=== PATIENT | male | born 1985 | race Caucasian/White ===

== ENCOUNTER → 2016-10-10 | Outpatient (CLI) | payer BC ==
--- NOTE | 2016-10-10 14:23 | CT ---
EXAMINATION: CT chest without contrast HISTORY: Pneumonia COMPARISON: Chest radiograph dated 09/30/2014 TECHNIQUE: Axial CT images obtained through the chest without contrast. Coronal and sagittal reconst ructions obtained. FINDINGS: The lungs are clear without focal consolidation. No pleural effusion or pneumothorax. The heart is normal in size without a pericardial effusion. On pathologically enlarged mediastinal lymph nodes are noted. No hilar fullness or axillary lymphadenopathy. Thoracic aorta is normal in caliber . Central airways are grossly clear. The visualized images of the upper abdomen appear normal. No suspicious osseous is identified. IMPRESSION: 1. Grossly unremarkable CT chest.
== END ==
LOC: MW.CT 10:55
PROVIDERS: ATTEND General Practice
DX: J18.9 Pneumonia, unspecified organism (principal)
CPT/HCPCS: 71250; 71250-26

== ENCOUNTER 2017-09-21 18:14 | Emergency (ER) | payer BC ==
[2017-09-21] MEDS ORDERED: Sodium Chloride 0.9% 2.5 ML Syringe FLUSH PRN (18:25)
[2017-09-21] MEDS ORDERED: Sodium Chloride 0.9% 10 ML Syringe FLUSH PRN (18:25)
[2017-09-21] MEDS ORDERED: Morphine 2 MG/ML Syringe IVPUSH ONE (18:26)
[2017-09-21] MEDS ORDERED: Aspirin 81 MG Tab.Chew PO ONE (18:26)
[2017-09-21] MEDS ORDERED: Ketorolac 30 MG/ML SDV IVPUSH ONE (18:26)
--- NOTE | 2017-09-21 18:31 | EDM.PDOC ---
<Betahny Sutton - Last Filed: 09/21/17 18:39> ED HPI GENERAL MEDICAL PROBLEM - General Chief Complaint: Chest Pain Stated Complaint: CHEST PAIN Time Seen by Provider: 09/21/17 18:18 - History of Present Illness INITIAL COMMENTS - FREE TEXT/NARRATIVE: HISTORY AND PHYSICAL: History of present illness: Patient is a 32-year-old male with no significant cardiac or pulmonary disease who presents with complaints of a cough for several days and now having chest pain anteriorly just to the left of the sternum which is sharp in nature. The patient says that there is more pain with deep breaths and movement as well as coughing. He's had no fever except a temp of 99 this morning and the cough is occasionally productive of phlegm. He did not get his influenza shot this year. He has been eating and drinking normally and has no abdominal complaints area is no leg pain or swelling. The patient has no significant social history and has no significant family history as his mother is the only one with cardiac disease and had an NE at 64 years of age. 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 The patient doesn't feel short of breath and occasionally he says that the pain does radiate to his back. Patient eats at home and does not eat fast food or junk food and has had no GI history. He has no flank pain and no recent trauma. Patient says that this discomfort and stabbing pain started about 8:30 this morning and has been constant all day but waxing and waning in intensity. He has not taken any medications for it prior to coming here Review of systems: As per history of present illness and below otherwise all systems reviewed and negative. Past medical history: As per history of present illness and as reviewed below otherwise noncontributory. Surgical history: As per history of present illness and as reviewed below otherwise noncontributory. Social history: No reported history of drug or alcohol abuse. Family history: As per history of present illness and as reviewed below otherwise noncontributory. Physical exam: General: Well-developed overweight male who is nontoxic and vital signs are reviewed by me. Patient seems a little anxious in the room but is answering questions and cooperative. HEENT: Atraumatic, normocephalic, pupils reactive, negative for conjunctival pallor or scleral icterus, mucous membranes moist, throat clear, neck supple, nontender, trachea midline. Lungs: Clear to auscultation, breath sounds equal bilaterally, chest wall with reproducible tenderness to the left of the sternal margin in the lower aspect without any crepitus defects or deformities. When I have the patient on himself or take a deep breath he complains of discomfort. There is no worker breathing or sensory muscle use stridor or wheezing Heart: S1S2, regular rhythm slightly tachycardic rate on my evaluation, negative for clicks, rubs, or JVD. Abdomen: Soft, nondistended, nontender. Negative for masses or hepatosplenomegaly. NABS Pelvis: Stable nontender. Genitourinary: Deferred. Rectal: Deferred. Extremities: Atraumatic, negative for cords or calf pain. Neurovascular unremarkable. No pedal edema or leg asymmetry Neuro: Awake, alert, oriented. Cranial nerves II through XII unremarkable. Cerebellum unremarkable. Motor and sensory unremarkable throughout. Exam nonfocal. Diagnostics: EKG CBC CMP d-dimer INR troponin influenza chest x-ray Therapeutics: IV O2 monitor aspirin Toradol morphine 1900: Case is endorsed to Dr. Voss will follow all testing results and disposition patient pending those results Impression: Chest pain/pleuritic chest pain with cough Definitive disposition and diagnosis as appropriate pending reevaluation and review of above. - Related Data Allergies Allergy/AdvReac Type Severity Reaction Status Date / Time No Known Allergies Allergy Verified 08/26/16 09:54 Home Meds: Home Meds Acyclovir 1 tab PO DAILY 01/14/16 [History] Past Medical History - Past Health History Medical/Surgical History: Denies Medical/Surgical History Respiratory History: Reports: Asthma Musculoskeletal History: Reports: None Neurological History: Reports: Head Trauma Psychiatric History: Reports: None Endocrine/Metabolic History: Reports: None Hematologic History: Reports: None Immunologic History: Reports: None Oncologic (Cancer) History: Reports: None Dermatologic History: Reports: None - Infectious Disease History Infectious Disease History: Reports: C-Difficile, Influenza Social & Family History - Family History Family Medical History: Noncontributory - Tobacco Use Smoking Status *Q: Former Smoker Years of Tobacco use: 2 Second Hand Smoke Exposure: No - Caffeine Use Caffeine Use: Reports: Coffee, Energy Drinks, Soda Caffeine Use Comment: 3/day - Recreational Drug Use Recreational Drug Use: No ED ROS GENERAL - Review of Systems Review Of Systems: ROS reveals no pertinent complaints other than HPI. ED EXAM, GENERAL - Physical Exam Exam: See Below (see Dictation) Course - Vital Signs Last Recorded V/S: Last Vital Signs Temp 97.8 F 09/21/17 18:15 Pulse 96 09/21/17 19:19 Resp 17 09/21/17 19:19 BP 129/84 09/21/17 19:19 Pulse Ox 97 09/21/17 19:19 - Orders/Labs/Meds Orders: Active Orders 24 hr Category Date Time Status Cardiac Monitoring [RC] . DIRECTED Care 09/21/17 18:25 Active EKG Documentation Completion [RC] STAT Care 09/21/17 18:25 Active Oxygen Therapy, ED [RC] ASDIRECTED Care 09/21/17 18:25 Active Pulse Oximetry [RC] ASDIRECTED Care 09/21/17 18:25 Active Chest 1V Frontal [CR] Stat Exams 09/21/17 18:26 Taken Sodium Chloride 0.9% [Saline Flush] Med 09/21/17 18:25 Active 10 ml FLUSH ASDIRECTED PRN Sodium Chloride 0.9% [Saline Flush] Med 09/21/17 18:25 Active 2.5 ml FLUSH ASDIRECTED PRN Saline Lock Insert [OM.PC] Stat Oth 09/21/17 18:25 Ordered Medication Orders Sodium Chloride (Saline Flush) 10 ml FLUSH ASDIRECTED PRN PRN Reason: Keep Vein Open Sodium Chloride (Saline Flush) 2.5 ml FLUSH ASDIRECTED PRN PRN Reason: Keep Vein Open Labs: Laboratory Tests 09/21/17 09/21/17 09/21/17 Range/Units 18:50 18:50 18:50 WBC 5.07 (4.0-11.0) K/uL RBC 4.93 (4.50-5.90) M/uL Hgb 14.8 (13.0-17.0) g/dL Hct 43.4 (38.0-50.0) % MCV 88.0 (80.0-98.0) fL MCH 30.0 (27.0-32.0) pg MCHC 34.1 (31.0-37.0) g/dL RDW Std Deviation 41.3 (28.0-62.0) fl RDW Coeff of Yovanny 13 (11.0-15.0) % Plt Count 188 (150-400) K/uL MPV 10.80 (7.40-12.00) fL Neut % (Auto) 58.5 (48.0-80.0) % Lymph % (Auto) 24.1 (16.0-40.0) % [place] % (Auto) 14.6 (0.0-15.0) % Eos % (Auto) 2.2 (0.0-7.0) % Baso % (Auto) 0.6 (0.0-1.5) % Neut # (Auto) 3.0 (1.4-5.7) K/uL Lymph # (Auto) 1.2 (0.6-2.4) K/uL [place] # (Auto) 0.7 (0.0-0.8) K/uL Eos # (Auto) 0.1 (0.0-0.7) K/uL Baso # (Auto) 0.0 (0.0-0.1) K/uL Nucleated RBC % 0.0 /100WBC Nucleated RBCs # 0 K/uL INR 0.98 D-Dimer, Quantitative (0.0-0.52) mg/LFEU Sodium 138 (136-148) mmol/L Potassium 4.0 (3.5-5.1) mmol/L Chloride 106 (98-107) mmol/L Carbon Dioxide 23.0 (21.0-32.0) mmol/L BUN 20 H (7.0-18.0) mg/dL Creatinine 1.1 (0.8-1.3) mg/dL Est Cr Clr Drug Dosing 104.84 mL/min Estimated GFR (MDRD) > 60.0 ml/min Glucose 100 (74-106) mg/dL Calcium 8.6 (8.5-10.1) mg/dL Total Bilirubin 0.3 (0.2-1.0) mg/dL AST 29 (15-37) U/L ALT 64 H (14-63) U/L Alkaline Phosphatase 79 (46-116) U/L Troponin I < 0.050 (0.000-0.056) ng/mL Total Protein 7.0 (6.4-8.2) g/dL Albumin 3.7 (3.4-5.0) g/dL Globulin 3.3 (2.0-3.5) g/dL Albumin/Globulin Ratio 1.1 L (1.3-2.8) 09/21/17 Range/Units 18:50 WBC (4.0-11.0) K/uL RBC (4.50-5.90) M/uL Hgb (13.0-17.0) g/dL Hct (38.0-50.0) % MCV (80.0-98.0) fL MCH (27.0-32.0) pg MCHC (31.0-37.0) g/dL RDW Std Deviation (28.0-62.0) fl RDW Coeff of Yovanny (11.0-15.0) % Plt Count (150-400) K/uL MPV (7.40-12.00) fL Neut % (Auto) (48.0-80.0) % Lymph % (Auto) (16.0-40.0) % [place] % (Auto) (0.0-15.0) % Eos % (Auto) (0.0-7.0) % Baso % (Auto) (0.0-1.5) % Neut # (Auto) (1.4-5.7) K/uL Lymph # (Auto) (0.6-2.4) K/uL [place] # (Auto) (0.0-0.8) K/uL Eos # (Auto) (0.0-0.7) K/uL Baso # (Auto) (0.0-0.1) K/uL Nucleated RBC % /100WBC Nucleated RBCs # K/uL INR D-Dimer, Quantitative 0.20 (0.0-0.52) mg/LFEU Sodium (136-148) mmol/L Potassium (3.5-5.1) mmol/L Chloride (98-107) mmol/L Carbon Dioxide (21.0-32.0) mmol/L BUN (7.0-18.0) mg/dL Creatinine (0.8-1.3) mg/dL Est Cr Clr Drug Dosing mL/min Estimated GFR (MDRD) ml/min Glucose (74-106) mg/dL Calcium (8.5-10.1) mg/dL Total Bilirubin (0.2-1.0) mg/dL AST (15-37) U/L ALT (14-63) U/L Alkaline Phosphatase (46-116) U/L Troponin I (0.000-0.056) ng/mL Total Protein (6.4-8.2) g/dL Albumin (3.4-5.0) g/dL Globulin (2.0-3.5) g/dL Albumin/Globulin Ratio (1.3-2.8) Meds: Medications Generic Name Dose Route Start Last Admin Trade Name Freq PRN Reason Stop Dose Admin Sodium Chloride 10 ml 09/21/17 18:25 Saline Flush FLUSH ASDIRECTED PRN Keep Vein Open Sodium Chloride 2.5 ml 09/21/17 18:25 Saline Flush FLUSH ASDIRECTED PRN Keep Vein Open Discontinued Medications Generic Name Dose Route Start Last Admin Trade Name Freq PRN Reason Stop Dose Admin Aspirin 324 mg 09/21/17 18:26 09/21/17 19:13 Aspirin PO 09/21/17 18:27 324 mg ONETIME ONE Administration Ketorolac Tromethamine 30 mg 09/21/17 18:26 09/21/17 19:14 Toradol IVPUSH 09/21/17 18:27 30 mg ONETIME ONE Administration Morphine Sulfate 4 mg 09/21/17 18:26 Morphine IVPUSH 09/21/17 18:27 ONETIME ONE Departure - Departure Disposition: Home, Self-Care 01 Clinical Impression: Acute bronchitis, Costochondritis - Discharge Information Referrals: PCP,None [Primary Care Provider] - Forms: ED Department Discharge Additional Instructions: Medication as prescribed Return if symptoms persist or worsen Follow-up with primary care in 2 weeks sooner as needed [facility] - [facility] [address] [place] [address] The following information is given to patients seen in the emergency department who are being discharged to home. This information is to outline your options for follow-up care. We provide all patients seen in our emergency department with a follow-up referral. The need for follow-up, as well as the timing and circumstances, are variable depending upon the specifics of your emergency department visit. If you don't have a primary care physician on staff, we will provide you with a referral. We always advise you to contact your personal physician following an emergency department visit to inform them of the circumstance of the visit and for follow-up with them and/or the need for any referrals to a consulting specialist. The emergency department will also refer you to a specialist when appropriate. This referral assures that you have the opportunity for follow-up care with a specialist. All of these measure are taken in an effort to provide you with optimal care, which includes your follow-up. Under all circumstances we always encourage you to contact your private physician who remains a resource for coordinating your care. When calling for follow-up care, please make the office aware that this follow-up is from your recent emergency room visit. If for any reason you are refused follow-up, please contact the [facility] emergency department at and asked to speak to the emergency department charge nurse. <Arsalan Voss - Last Filed: 09/21/17 20:41> ED HPI GENERAL MEDICAL PROBLEM - History of Present Illness INITIAL COMMENTS - FREE TEXT/NARRATIVE: I've seen and examined the patient and agree with the above, chest wall discomfort with deep inspiration no radiation arm neck or jaw no association with shortness of breath or diaphoresis Gen. 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
[2017-09-21 19:29] LABS: CHLORIDE,CL 106 mmol/L (98-107); SODIUM,NA 138 mmol/L (136-148)
[2017-09-21 21:54] VITALS: BP 130/80
--- NOTE | 2017-09-22 08:10 | CR ---
EXAM DATE: 09/21/17 PATIENT'S AGE: 32 Patient: JOAQUIN SMITH Facility: [place], [place] Site . Site : 1985 Study: XRay Chest [id number]/4/2018 6:54:39 PM Ordering Physician: Herman Sims Final Report: INDICATION: Pain. Shortness of breath. Cough. COMPARISON: 09/30/2014. FINDINGS: A portable AP view of the chest was obtained. The cardiac silhouette and pulmonary vasculature are within normal limits. The lungs are clear bilaterally. IMPRESSION: No evidence of acute pulmonary disease. Dictated by Jorge Luis Cummings MD @ 09/21/2017 7:09:25 PM Dictated by: Jorge Luis Cummings MD @ 09/21/2017 19:09:55 (Electronic Signature) Report Signed by Proxy. [facility]IN[facility] INSANEZena
== END 2017-09-21 20:55 | disposition home or self-care (01) ==
LOC: MW.ED 18:14
DX: J20.9 Acute bronchitis, unspecified (principal); M94.0 Chondrocostal junction syndrome [Tietze]; Z87.891 Personal history of nicotine dependence; Z79.899 Other long term (current) drug therapy
CPT/HCPCS: 71045; 80053; 84484; 85025; 85379; 85610; 87804; 93005; 96374; 99285; A9270; J1885; 99283

== ENCOUNTER 2020-02-12 12:34 | Emergency (ER) | payer BC, OTHER ==
[2020-02-12] MEDS ORDERED: Ondansetron 4 MG Tab.DIS PO ONE (12:40)
[2020-02-12] MEDS ORDERED: HYDROmorphone 1 MG/ML Syringe IM ONE (12:40)
[2020-02-12] MEDS ORDERED: methylPREDNISolone Sodium Succinate 125 MG/2 ML SDV IM ONE (12:41)
[2020-02-12] MEDS ORDERED: Cyclobenzaprine 10 MG Tab PO ONE (14:04)
--- NOTE | 2020-02-12 14:14 | CR ---
Lumbar spine: AP and lateral views lumbar spine were obtained. Comparison: No previous lumbar spine imaging. Operative body heights and disc spaces are maintained. Minimal scattered endplate osteophytes are seen. Pedicles are intact. Visualized transverse and spinous processes are intact. Sacroiliac joints are within normal limits. Impression: 1. Minimal scattered endplate osteophytes. 2. Two-view lumbar spine study is otherwise unremarkable. Diagnostic code #2 This report was dictated in MDT
--- NOTE | 2020-02-12 14:18 | EDM.PDOC ---
ED HPI GENERAL MEDICAL PROBLEM - General Chief Complaint: Back Pain or Injury Stated Complaint: AMBULANCE Time Seen by Provider: 02/12/20 12:37 Source of Information: Reports: Patient History Limitations: Reports: No Limitations - History of Present Illness INITIAL COMMENTS - FREE TEXT/NARRATIVE: HISTORY AND PHYSICAL: History of present illness: Patient is a 35-year-old male who presents to the emergency room by ambulance with complaints of left sided lumbar back pain that radiates down his left leg. He reports he started having back pain on 01/19/2020 after playing golf. Since then he has been having moderate discomfort. Today he was hooking a trailer hitch when he bent over and had moderate to severe pain. States he was unable to move his left lower extremity, therefore called the ambulance. Upon arrival the patient is laying on his abdomen and is able to freely move around the cot. Has been using Tylenol and ibuprofen at home with no relief. He has had chiro practic adjustments/manipulation without relief. He denies any urinary or fecal incontinence. Patient denies any fever, chills, headache, change in vision, syncope or near syncope. Denies any chest pain, back pain, shortness of breath or cough. Denies any abdominal pain, nausea, vomiting, diarrhea, constipation or dysuria. Has not noted any blood in urine or stool. Patient has been eating and drinking appropriately. Review of systems: As per history of present illness and below otherwise all systems reviewed and negative. Past medical history: As per history of present illness and as reviewed below otherwise noncontributory. Surgical history: As per history of present illness and as reviewed below otherwise noncontributory. Social history: See social history for further information Family history: As per history of present illness and as reviewed below otherwise noncontributory. Physical exam: General: Well developed and well nourished 35 year old male. Alert and oriented. Nontoxic-appearing and in no acute distress. HEENT: Atraumatic, normocephalic, pupils equal and reactive bilaterally, negative for conjunctival pallor or scleral icterus, mucous membranes moist, TMs normal bilaterally, throat clear, neck supple, nontender, trachea midline. No drooling or trismus noted. No meningeal signs. No hot potato voice noted. Lungs: Clear to auscultation, breath sounds equal bilaterally, chest nontender. Heart: S1S2, regular rate and rhythm without overt murmur Abdomen: Soft, nondistended, nontender. Negative for masses or hepatosplenomegaly. Negative for costovertebral tenderness. Pelvis: Stable nontender. C-spine/Back: No pinpoint vertebral tenderness upon palpation. No crepitus, step-offs or obvious deformities. Just left to the low lumbar region he has musculoskeletal pain that radiates into the left hip/glutes and down the posterior thigh. He denies any urinary or fecal incontinence. Denies any numbness, tingling or saddle paresthesia. He has good plantar flexion and dorsal flexion bilaterally. No concerns of serious infection, fracture or cord compression, or cauda equina syndrome. Deep tendon reflexes brisk bilaterally. Rectal: This was done with consent and a wire saw operator at the bedside. Good rectal tone, + sensation. Skin: Bruising noted along the left lateral ankle/foot just above the solar surface. Otherwise skin is intact, warm, dry. No lesions or rashes noted. Extremities: Settling bruising along the left lateral foot above the solar surface. He does have pain with palpation of the left knee and mid tib-fib and left lateral malleolus. Strong pedal pulse moves all extremities per self without difficulty or deficits, negative for cords or calf pain. Neurovascular unremarkable. Neuro: Awake, alert, oriented. Cranial nerves II through XII unremarkable. Cerebellum unremarkable. Motor and sensory unremarkable throughout. Exam nonfocal. Notes: I did note during my evaluation that he has bruising to left lateral foot/ankle. He states he stepped into a whole a few days ago and rolled his ankle. He was seen in the clinic and no fractures were noted. He is tender to the left knee downward. Patient is requesting an MRI. X-ray shows minimal scattered endplate osteophytes. Otherwise the lumbar spine x-ray is unremarkable. I did have Dr. Mcdonough evaluate this patient, he agrees that the patient will not require an MRI at this time. CT and x-ray will be completed. The lumbar spine CT does show some degenerative changes such as asymmetric disc protrusion of the L4 and 5 on the left side causing compromise of the left L4 nerve root outside the neural foramina. I did speak with Dr. Fox on the phone about this CT which he states this is not acute. X-ray of the left ankle shows slight cortical irregularity of the medial talus which is suspicious for small fracture. There is mild soft tissue swelling noted. No additional abnormalities are appreciated. Patient will be placed in a cam walker boot and offered crutches, which he declines. We discussed the need for follow-up with orthopedic or motors and generators inspector regarding the possible fractured talus finding. I spoke with both the patient and the via cell phone/speaker about his discharge instructions. I will order for an outpatient MRI with the intent that Dr. Robby Blount will receive results on this and follow-up with them next week. We discussed signs and symptoms that would prompt him to return to the emergency room. Patient is ambulatory in the room and moving all extremities per self. No neurological findings noted. He is appropriate for discharge. We discussed follow-up, medication and supportive care measures were reviewed and discussed. Voices understanding and is agreeable to plan of care. Denies any further questions or concerns at this time. Diagnostics: Lumbar X-ray, CT lumbar spine, knee/tib-fib/ankle x-ray Therapeutics: Dilaudid, Solu-Medrol, Flexeril Prescription: Flexeril and Diclofenac Impression: Lumbar back pain with sciatica Foot injury, left Plan: 1. The medication you received today does cause drowsiness, so do not drive for the remaining day 2. When resting please lay on a flat firm surface. Limit your immobility to prevent muscle stiffness. Get up to ambulate/move around/gentle stretching multiple times throughout the day. May alternate heat and ice to the painful areas 3. Tylenol as needed for back pain. Otherwise take the prescribed Flexeril and diclofenac as directed. Diclofenac is an anti-inflammatory so do not take any additional NSAIDs with this medication, such as ibuprofen or Aleve. Flexeril as a muscle relaxant, this medication may cause drowsiness a do not take it will driving her needing to be functioning outside of the house. 4. Please follow-up with you podiatry or the orthopedic provider regarding your foot injury. Follow up with Dr Robby Blount, call Friday to schedule an appointment. You need to call Radiology on Friday to set up your MRI appointment. Results will go to Dr Blount. 5. Return to the ED as needed and as discussed. Definitive disposition and diagnosis as appropriate pending reevaluation and review of above. Left Hip Pain Score (Numeric/FACES): 10 - Related Data Allergies Allergy/AdvReac Type Severity Reaction Status Date / Time No Known Allergies Allergy Verified 02/12/20 12:42 Home Meds: Home Meds Acetaminophen/HYDROcodone [Steger 325-5 MG] 1 dose PO Q4H #20 tablet 02/12/20 [Rx] Cyclobenzaprine [Flexeril] 10 mg PO TID PRN #30 tab 02/12/20 [Rx] Diclofenac Sodium [Voltaren] 75 mg PO BIDMEALS PRN #30 tab.cr 02/12/20 [Rx] Past Medical History - Past Health History Medical/Surgical History: Denies Medical/Surgical History HEENT History: Reports: Other (See Below) Other HEENT History: cold sores Respiratory History: Reports: Asthma Musculoskeletal History: Reports: None Neurological History: Reports: Head Trauma Psychiatric History: Reports: None Endocrine/Metabolic History: Reports: None Hematologic History: Reports: None Immunologic History: Reports: None Oncologic (Cancer) History: Reports: None Dermatologic History: Reports: None - Infectious Disease History Infectious Disease History: Reports: Chicken Pox Social & Family History - Family History Family Medical History: Noncontributory - Tobacco Use Smoking Status *Q: Former Smoker Used Tobacco, but Quit: Yes Month/Year Tobacco Last Used: 2004 - Caffeine Use Caffeine Use: Reports: Coffee, Energy Drinks, Soda Caffeine Use Comment: 3/day - Recreational Drug Use Recreational Drug Use: No ED ROS GENERAL - Review of Systems Review Of Systems: Comprehensive ROS is negative, except as noted in HPI. ED EXAM,LOWER BACK PAIN/INJURY - Physical Exam Exam: See Below (See dictation) Course - Vital Signs Last Recorded V/S: Last Vital Signs Temp 97.6 F 02/12/20 12:39 Pulse 111 H 02/12/20 14:41 Resp 18 02/12/20 14:41 BP 162/90 H 02/12/20 14:41 Pulse Ox 97 02/12/20 14:41 - Orders/Labs/Meds Orders: Active Orders 24 hr Category Date Time Status DME for Discharge [COMM] Stat Oth 02/12/20 15:56 Ordered Meds: Medications Discontinued Medications Generic Name Dose Route Start Last Admin Trade Name Freq PRN Reason Stop Dose Admin Cyclobenzaprine HCl 10 mg 02/12/20 14:04 02/12/20 14:40 Flexeril PO 02/12/20 14:05 10 mg ONETIME ONE Administration Hydromorphone HCl 1 mg 02/12/20 12:40 02/12/20 13:07 Dilaudid IM 02/12/20 12:41 1 mg ONETIME ONE Administration Methylprednisolone Sodium Succinate 125 mg 02/12/20 12:41 02/12/20 13:08 Solu-Medrol IM 02/12/20 12:42 125 mg ONETIME ONE Administration Ondansetron HCl 4 mg 02/12/20 12:40 02/12/20 13:08 Zofran Odt PO 02/12/20 12:41 4 mg ONETIME ONE Administration Departure - Departure Time of Disposition: 16:10 Disposition: Home, Self-Care 01 Clinical Impression: Back pain of lumbar region with sciatica Foot injury Qualifiers: Encounter type: subsequent encounter Laterality: left Qualified Code(s): S99 .922D - Unspecified injury of left foot, subsequent encounter - Discharge Information Prescriptions: Cyclobenzaprine [Flexeril] 10 mg PO TID PRN #30 tab PRN Reason: Muscle Spasm Acetaminophen/HYDROcodone [Steger 325-5 MG] 1 dose PO Q4H #20 tablet Diclofenac Sodium [Voltaren] 75 mg PO BIDMEALS PRN #30 tab.cr PRN Reason: Pain Instructions: Sciatica, [id number] Referrals: Robby Blount MD [Primary Care Provider] - Forms: ED Department Discharge Additional Instructions: The following information is given to patients seen in the emergency department who are being discharged to home. This information is to outline your options for follow-up care. We provide all patients seen in our emergency department with a follow-up referral. The need for follow-up, as well as the timing and circumstances, are variable depending upon the specifics of your emergency department visit. If you don't have a primary care physician on staff, we will provide you with a referral. We always advise you to contact your personal physician following an emergency department visit to inform them of the circumstance of the visit and for follow-up with them and/or the need for any referrals to a consulting specialist. The emergency department will also refer you to a specialist when appropriate. This referral assures that you have the opportunity for follow-up care with a specialist. All of these measure are taken in an effort to provide you with optimal care, which includes your follow-up. Under all circumstances we always encourage you to contact your private physician who remains a resource for coordinating your care. When calling for follow-up care, please make the office aware that this follow-up is from your recent emergency room visit. If for any reason you are refused follow-up, please contact the [facility] Emergency Department at and asked to speak to the emergency department charge nurse. [facility] [address] [place] [id number] [facility] [address] [place] [id number] Thank you for choosing the [facility] emergency department in [place] for your medical needs today. It was a pleasure caring for you. You were seen in the emergency department for severe back pain. Your CT did show degenerative changes along with some bulging disks. You will need to call Friday to set up a outpatient MRI appointment. The x-ray of your foot does show a possible talus fracture. Please follow-up with an orthopedic provider to have this reevaluated. 1. The medication you received today does cause drowsiness, so do not drive for the remaining day 2. When resting please lay on a flat firm surface. Limit your immobility to prevent muscle stiffness. Get up to ambulate/move around/gentle stretching multiple times throughout the day. May alternate heat and ice to the painful areas 3. Tylenol as needed for back pain. Otherwise take the prescribed Flexeril and diclofenac as directed. Diclofenac is an anti-inflammatory so do not take any additional NSAIDs with this medication, such as ibuprofen or Aleve. Flexeril as a muscle relaxant, this medication may cause drowsiness a do not take it will driving her needing to be functioning outside of the house. 4. Please follow-up with you podiatry or the orthopedic provider regarding your foot injury. Follow up with Dr Robby Blount, call Friday to schedule an appointment. You need to call Radiology on Friday to set up your MRI appointment. Results will go to Dr Blount. 5. Return to the ED as needed and as discussed. Sepsis Event Note (ED) - Evaluation Sepsis Screening Result: No Definite Risk - Focused Exam Vital Signs: Vital Signs Temp Pulse Resp BP Pulse Ox 02/12/20 14:41 111 H 18 162/90 H 97 02/12/20 12:39 97.6 F 100 22 H 154/102 H 98 - My Orders Last 24 Hours: My Active Orders 02/12/20 15:56 DME for Discharge [COMM] Stat - Assessment/Plan Last 24 Hours: My Active Orders 02/12/20 15:56 DME for Discharge [COMM] Stat
[2020-02-12 14:42] VITALS: BP 162/90; PULSE 111
--- NOTE | 2020-02-12 15:24 | CT ---
CT lumbar spine Technique: Multiple axial sections were obtained from above the T11-12 disc inferiorly through a large portion of the sacrum. Reconstructed sagittal and coronal images were obtained. Findings: Vertebral body heights and disc spaces are maintained. No fracture is appreciated. Slight circumferential disc bulge is noted at L3-4. Posterior disc maintains concave margin. Asymmetric disc protrusion is noted at L4-5 to the extreme left side which causes compromise upon the left L4 nerve root outside the neural foramina. Right neural foramen is patent. Left neuroforamina shows narrowing. No abnormal subluxation is seen. Impression: 1. Degenerative disc change as noted above. 2. No acute bony abnormality is appreciated. Diagnostic code #2 This report was dictated in MDT
--- NOTE | 2020-02-12 15:40 | CR ---
Left ankle: 3 views left ankle were obtained. Comparison: No previous ankle study. Slight cortical irregularity is seen off the medial talus suspicious for small fracture. Mild soft tissue swelling is noted. No additional abnormality is appreciated. Impression: 1. Findings suspicious for small cortical fracture off the medial talus. 2. Soft tissue swelling with no additional bony abnormality being seen. Diagnostic code #3 This report was dictated in MDT
--- NOTE | 2020-02-12 15:46 | CR ---
Left knee: AP, lateral and sunrise patellar views of the left knee were obtained. Comparison: No previous knee exam. Medial and lateral joint spaces are maintained in height. No joint effusion is seen. Patellofemoral joint appears within normal limits. Impression: 1. No abnormality is appreciated on 3 view left knee exam. Diagnostic code #1 This report was dictated in MDT
--- NOTE | 2020-02-12 15:48 | CR ---
Left tibia and fibula: AP and lateral views of the left tibia and fibula were obtained. Comparison: No previous study. No fracture or other bony abnormality is seen. Impression: 1. No abnormality is appreciated on 2 view left tibia and fibula exam. Diagnostic code #1 This report was dictated in MDT
== END 2020-02-12 16:48 | disposition home or self-care (01) ==
LOC: MW.ED 12:34
DX: S90.32XA Contusion of left foot, initial encounter (principal); M54.42 Lumbago with sciatica, left side; Z87.891 Personal history of nicotine dependence; X50.1XXA Overexertion from prolonged static or awkward postures, initial encounter
CPT/HCPCS: 72100; 72131; 73562; 73590; 73610; 96372; 99284; A9270; J1170; J2930; 99283